=== PATIENT | female | born 1965 | race Hispanic/Latino ===

== ENCOUNTER 2018-01-24 07:47 | Outpatient (CLI) | payer OTHER ==
--- NOTE | 2018-01-24 10:54 | XRay Report ---
X-ray RIGHT WRIST FOUR VIEWS: 01/24/18 00:00:00 CLINICAL: Right wrist pain. FINDINGS: Normal bones, joints and soft tissues. No fracture or dislocation. IMPRESSION: Normal
== END 2018-01-24 07:48 | disposition home or self-care (01) ==
LOC: SPVIMAG 07:47
PROVIDERS: ATTEND Orthopaedic Surgery
DX: M25.531 Pain in right wrist (principal)